=== PATIENT | female | born 1995 | race Caucasian/White ===

== ENCOUNTER 2016-12-23 15:05 | Emergency (ER) | payer OTHER ==
[2016-12-23 15:23] VITALS: BP 108/60
[2016-12-23] MEDS ORDERED: Acetaminop/Codeine 30 MG TAB* 1 TAB (300 MG/30 MG) PO ONE (15:33)
[2016-12-23] MEDS ORDERED: Ofloxacin 0.3% OTIC.SOL* 5 ML BTL LEFT EAR ONE (15:47)
--- NOTE | 2016-12-23 16:09 | UC ---
Ear Complaint HPI - HPI Summary HPI Summary: Patient arrives with mother and c/o of R ear pain since approx 1000 when pt states a bug flew into her R ear. She states using hydrogen peroxide in the ear and got the bug out, ever since then, she has had pain. Also c/o of L ear pain that she has had for the past 2 days. She notes to recurrent ear infections, but denies ear infections as a child. She is otherwise healthy. Denies sore throat, nasal congestion, cough, SOB, difficulty hearing or head congestion. - History of Current Complaint Chief Complaint: UCEar Stated Complaint: EAR COMPLAINT Time Seen by Provider: 12/23/16 15:09 Hx Obtained From: Patient Hx Last Menstrual Period: 12/09/16 ?: No Severity Initially: Moderate Severity Currently: Moderate Pain Intensity: 5 Pain Scale Used: 0-10 Numeric Alleviating Factors: OTC Meds Associated Signs/Symptoms: Positive: Trauma to Ear - Allergies/Home Medications Allergies/Adverse Reactions: Allergies Allergy/AdvReac Type Severity Reaction Status Date / Time Penicillins Allergy Intermediate Rash Verified 12/23/16 15:22 Adhesive Tape Allergy Mild Rash Verified 12/23/16 15:22 Latex Allergy Itching Verified 12/23/16 15:22 PMH/Surg Hx/FS Hx/Imm Hx Previously Healthy: Yes Neurological History Of: Reports: Migraine Psychological History Of: Reports: Anxiety, Depression - Surgical History Surgical History: Yes Surgery Procedure, Year, and Place: kidney stone removed - Family History Known Family History: Positive: Unknown - Social History Occupation: Employed Full-time Lives: With Family Alcohol Use: None Substance Use Type: None Smoking Status (MU): Never Smoked Tobacco - Immunization History Most Recent Influenza Vaccination: Current for Season Most Recent Pneumonia Vaccination: never Vaccination Up to Date: Yes Review of Systems Constitutional: Negative Skin: Negative Eyes: Negative ENT: Ear Ache Respiratory: Negative Cardiovascular: Negative Neurovascular: Negative Musculoskeletal: Negative Neurological: Negative Psychological: Negative All Other Systems Reviewed And Are Negative: Yes Physical Exam Triage Information Reviewed: Yes Appearance: Well-Appearing, No Pain Distress, Well-Nourished Vital Signs: Initial Vital Signs Temp 98.5 F 12/23/16 15:17 Pulse 84 12/23/16 15:17 Resp 16 12/23/16 15:17 BP 108/60 12/23/16 15:17 Pulse Ox 100 12/23/16 15:17 Vital Signs Reviewed: Yes Eye Exam: Normal Eyes: Positive: Conjunctiva Clear, Conjunctiva Inflamed ENT Exam: Normal ENT: Positive: Pharynx normal, Nasal drainage, Other: - left TM with red circular ring without puncture of TM - trauma to the area from a bug Dental Exam: Normal Neck exam: Normal Neck: Positive: Supple, Nontender, No Lymphadenopathy Respiratory Exam: Normal Respiratory: Positive: Chest non-tender, Lungs clear Cardiovascular Exam: Normal Cardiovascular: Positive: RRR Psychological Exam: Normal Psychological: Positive: Normal Response To Family Skin Exam: Normal Ear Complaint Course/Dx - Course Course Of Treatment: patient requesting otic drops d/t recurrent ear infections. ofloxacin ordered for right ear. right ear with redness but without signs of infection - looks as if d/t trauma from the bug. the left ear has some buildup inside the ear which reveals a very early possible otitis externa. she agrees with plan and OK for follow up. - Differential Dx/Diagnosis Differential Diagnosis/HQI/PQRI: Barotrauma, Cellulitis, Foreign Body, Perforated TM Provider Diagnoses: otitis externa Discharge - Discharge Plan Condition: Stable Disposition: HOME Prescriptions: Ofloxacin 0.3% OTIC.LASHON* [Floxin 0.3% OTIC.LASHON*] 5 drop .SEE ORDER DAILY #1 btl Patient Education Materials: Otitis Media (ED) Referrals: MAURI Enrique [Primary Care Provider] - Additional Instructions: FOLLOW UP WITH PCP. IF SYMPTOMS PERSIST, COME BACK TO OR GO TO THE ED. TYLENOL 650 THREE TIMES DAILY FOR EAR PAIN. OFLOXACIN 5 DROPS ANTIBIOTIC DAILY FOR 7 DAYS.
[2016-12-23] MEDS ORDERED: Ofloxacin 0.3% OTIC.SOL* 5 ML BTL LEFT EAR SCH (21:00)
== END 2016-12-23 16:05 | disposition home or self-care (01) ==
LOC: UCCORT 15:05
DX: H60.90 Unspecified otitis externa, unspecified ear (principal); G43.909 Migraine, unspecified, not intractable, without status migrainosus; Z87.442 Personal history of urinary calculi; F41.8 Other specified anxiety disorders; Z88.0 Allergy status to penicillin
CPT/HCPCS: 99212; A9270-GY; G0463

== ENCOUNTER 2018-03-09 21:16 | Emergency (ER) | payer MEDICAID, OTHER ==
--- NOTE | 2018-03-09 21:24 | UC ---
Throat Pain/Nasal Shiva HPI - HPI Summary HPI Summary: 22 yo female presents with multiple complaints: 1) B/l earache and pressure for the last 2-3 weeks. 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 Admits that she has been a bit stressed at work. She is ambulating unassisted without a limp or significant pain. Has not taken anything OTC for her symptoms. Denies fever, chills, SOB, chest pain, abdominal pain, n/v/d/c, or dysuria. - History of Current Complaint Stated Complaint: bilateral leg,throat,ear complaints Time Seen by Provider: 03/09/18 21:24 Hx Obtained From: Patient Hx Last Menstrual Period: 12/09/16 Onset/Duration: Gradual Onset Severity: Moderate Pain Intensity: 8 Pain Scale Used: 0-10 Numeric - Allergies/Home Medications Allergies/Adverse Reactions: Allergies Allergy/AdvReac Type Severity Reaction Status Date / Time Adhesive Tape Allergy Mild Rash Verified 07/07/17 15:06 Latex, Natural Rubber Allergy Itching Verified 03/09/18 21:23 Penicillins Allergy Rash Verified 03/09/18 21:23 PMH/Surg Hx/FS Hx/Imm Hx Psychological History: Anxiety, Depression - Surgical History Surgical History: Yes Surgery Procedure, Year, and Place: kidney stone removed - Family History Known Family History: Positive: Unknown - Social History Occupation: Student Lives: With Family Alcohol Use: None Substance Use Type: None Smoking Status (MU): Never Smoked Tobacco - Immunization History Most Recent Influenza Vaccination: Current for Season Most Recent Pneumonia Vaccination: never Vaccination Up to Date: Yes Review of Systems Constitutional: Negative Skin: Negative Eyes: Negative ENT: Sore Throat, Ear Ache Respiratory: Cough Cardiovascular: Negative Gastrointestinal: Negative Genitourinary: Negative Neurovascular: Negative Musculoskeletal: Other: - b/l anterior thigh pain Neurological: Negative Psychological: Negative All Other Systems Reviewed And Are Negative: Yes Physical Exam - Summary Physical Exam Summary: GENERAL: NAD. WDWN. No pain distress. SKIN: No rashes, sores, lesions, or open wounds. HEENT: Head: AT/NC Eyes: Conjunctiva clear without inflammation or discharge. Ears: Hearing grossly normal. TMs intact, no bulging, erythema, or edema. Nose: Nasal mucosa pink and moist. NTTP maxillary and frontal sinus. Throat: Posterior oropharynx mild erythema and 2+ tonsillar enlargement. No exudates. Uvula midline. No hoarse voice or muffled voice. NECK: Supple. Nontender. No lymphadenopathy. CHEST: CTAB. No r/r/w. No accessory muscle use. Breathing comfortably and in no distress. CV: RRR. Without m/r/g. Pulses intact. Brisk cap refill. MSK: B/L LEs: FROM. Strength 5/5 and symmetric. TTP over quads and pain with flexion when providing resistance. NEURO: Alert. CN II-XII grossly intact. PSYCH: Age appropriate behavior. Triage Information Reviewed: Yes Vital Signs: Vital Signs: Temp Pulse Resp BP Pulse Ox 98.5 F 86 15 117/71 100 03/09/18 21:22 03/09/18 21:22 03/09/18 21:22 03/09/18 21:22 03/09/18 21:22 Throat Pain/Nasal Course/Dx - Course Course Of Treatment: Suspect pharyngitis. Rx for zpak. Advised to RICE and take ibuprofen for her leg pain as I suspect this is from overuse or muscle strain. - Differential Dx/Diagnosis Provider Diagnoses: Pharyngitis. B/L Quad strain Discharge - Sign-Out/Discharge Documenting (check all that apply): Discharge/Admit/Transfer - Discharge Plan Condition: Stable Disposition: HOME Prescriptions: Azithromycin TAB* [Zithromax TAB (Z-SHAHBAZ) 250 mg #6 tabs] 2 tab PO .TODAY, THEN 1 DAILY #1 shahbaz Patient Education Materials: Pharyngitis (ED) Forms: *Work Release Referrals: MAURI Enrique [Primary Care Provider] - Additional Instructions: If you develop a fever, shortness of breath, chest pain, new or worsening symptoms - please call your PCP or go to the ED. Your blood pressure was high at todays visit. Please see your primary provider within 4 weeks for recheck and re-evaluation. - Billing Disposition and Condition Condition: STABLE Disposition: Home
[2018-03-09 21:28] VITALS: BP 117/71
[2018-03-09] MEDS ORDERED: Azithromycin TAB* 250 MG PO ONE (21:33)
== END 2018-03-09 21:44 | disposition home or self-care (01) ==
LOC: UCCORT 21:16
DX: J02.9 Acute pharyngitis, unspecified (principal); S76.112A Strain of left quadriceps muscle, fascia and tendon, initial encounter; S76.111A Strain of right quadriceps muscle, fascia and tendon, initial encounter; X50.0XXA Overexertion from strenuous movement or load, initial encounter; Y93.F9 Activity, other caregiving; Y92.9 Unspecified place or not applicable; Y99.0 Civilian activity done for income or pay; Z88.0 Allergy status to penicillin
CPT/HCPCS: 99212; A9270-GY; G0463

== ENCOUNTER 2018-03-13 12:31 | Emergency (ER) | payer OTHER ==
--- NOTE | 2018-03-13 13:24 | UC ---
Eye Complaint HPI - HPI Summary HPI Summary: Left ear decreased hearing and "clear" discharge, "dark green" nasal congestion , sore throat, painful swallowing, and "dark green" productive cough for five day. Seen here 03/09/18 with pharyngitis and bilateral quad strain, and given a Z -Chandana and work release. When asked, patient stated symptoms are worsening. Decreased appetite, nausea with three episodes of vomiting (last "right before I came here"; able to tolerate fluids), diarrhea "pretty much all day", myalgias , chills, sweats, and tired for two days. Elevated temperature (101) today. [ End ] - History of Current Complaint Chief Complaint: UCGeneralIllness Stated Complaint: BILATERAL EAR CONGESTION VOMITING DIARRHEA Time Seen by Provider: 03/13/18 13:12 Hx Obtained From: Patient Hx Last Menstrual Period: "I just started the Depo, so I'm bleeding constantly. " Onset/Duration: Gradual Onset, Lasting Days, Still Present Timing: Constant Severity Initially: Moderate Severity Currently: Moderate Pain Intensity: 8 Pain Scale Used: 0-10 Numeric - Allergies/Home Medications Allergies/Adverse Reactions: Allergies Allergy/AdvReac Type Severity Reaction Status Date / Time Adhesive Tape Allergy Mild Rash Verified 03/13/18 12:51 Latex, Natural Rubber Allergy Itching Verified 03/13/18 12:51 Penicillins Allergy Rash Verified 03/13/18 12:51 Home Medications: Home Medications Ibuprofen TAB* [Advil TAB*] 400 mg PO Q6H PRN 03/13/18 [History Confirmed ] medroxyPROGESTERone ACETATE* [DEPO-Provera*] 150 mg IM SEE INSTRUCTIONS [History Confirmed 03/13/18] PMH/Surg Hx/FS Hx/Imm Hx - Additional Past Medical History Additional PMH: FIBROMYALGIA GI/ History: Gastroesophageal Reflux, Kidney Stones Neurological History: Migraine Psychological History: Depression - Surgical History Surgical History: Yes Surgery Procedure, Year, and Place: kidney stone removed - Family History Known Family History: Positive: Unknown - Social History Alcohol Use: Rare Substance Use Type: None Smoking Status (MU): Never Smoked Tobacco - Immunization History Most Recent Influenza Vaccination: Current for Season Most Recent Pneumonia Vaccination: never Vaccination Up to Date: Yes Review of Systems Constitutional: Fever, Fatigue ENT: Sore Throat, Ear Ache, Nasal Discharge Respiratory: Shortness Of Breath, Cough Cardiovascular: Negative Gastrointestinal: Abdominal Pain, Vomiting, Diarrhea, Nausea Genitourinary: Negative Musculoskeletal: Myalgia Neurological: Headache All Other Systems Reviewed And Are Negative: Yes Physical Exam Triage Information Reviewed: Yes Appearance: No Pain Distress, Well-Nourished, Ill-Appearing - MILD Vital Signs: Initial Vital Signs Temp 99 F 03/13/18 12:44 Pulse 108 03/13/18 12:44 Resp 16 03/13/18 12:44 BP 110/58 03/13/18 12:44 Pulse Ox 100 03/13/18 12:44 Vital Signs Reviewed: Yes Eyes: Positive: Conjunctiva Clear ENT: Positive: Hearing grossly normal, Pharynx normal, Other - RIGHT TM NORMAL. LEFT TM MILDLY ERYTHEMATOUS Neck: Positive: Supple, Nontender, No Lymphadenopathy Respiratory Exam: Normal Cardiovascular Exam: Normal Abdomen Description: Positive: Soft, CVA Tenderness (R) - EQUIVOCAL, CVA Tenderness (L) - EQUIVOCAL, Other: - TTP RLQ. NO RIGIDITY OR REBOUND. POSITIVE PSOAS AND OBTURATOR. PAIN WITH LIGHT PERCUSSION. Negative: Distended, Guarding Bowel Sounds: Positive: Present Musculoskeletal: Positive: No Edema Neurological: Positive: Alert Psychological: Positive: Age Appropriate Behavior Skin: Negative: rashes Discharge - Discharge Plan Referrals: Delia Piedra MD [Primary Care Provider] -
--- NOTE | 2018-03-13 13:46 | UC ---
General HPI - HPI Summary HPI Summary: PRESENTS WITH OVER A WEEK OF ILLNESS. WAS SEEN 4 DAYS AGO AND DIAGNOSED WITH PHARYNGITIS TREATED WITH A Z-SHAHBAZ. PATIENT STATES SHE IS NOT BETTER AND HAS PERSISTENT PRODUCTIVE COUGH AND NASAL CONGESTION, SORE THROAT, PAIN WITH SWALLOWING. SHE IS REPORTING LOW-GRADE FEVERS OF ABOUT 101 MOST RECENTLY TODAY. 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 STATES BOTH HER EARS HURT WITH MUTED HEARING FROM THE LEFT EAR. REPORTS SOME CLEAR DRAINAGE FROM THE EAR. OVER THE PAST FEW DAYS SHE HAS DEVELOPED NAUSEA, VOMITING AND MULTIPLE EPISODES OF DIARRHEA. SHE HAS MYALGIAS, CHILLS, SWEATS AND FATIGUE. APPETITE IS DOWN. - History of Current Complaint Chief Complaint: UCGeneralIllness Stated Complaint: BILATERAL EAR CONGESTION VOMITING DIARRHEA Time Seen by Provider: 03/13/18 13:12 Hx Obtained From: Patient Hx Last Menstrual Period: "I just started the Depo, so I'm bleeding constantly. " Onset/Duration: Gradual Onset, Lasting Days Timing: Constant Onset Severity: Moderate Current Severity: Moderate Pain Intensity: 8 Associated Signs & Symptoms: Positive: Back Pain, Cough, Diarrhea, Fever, Headache, Nausea, SOB, Vomiting - Allergy/Home Medications Allergies/Adverse Reactions: Allergies Allergy/AdvReac Type Severity Reaction Status Date / Time Adhesive Tape Allergy Mild Rash Verified 03/13/18 14:00 Latex, Natural Rubber Allergy Itching Verified 03/13/18 14:00 MS Penicillins [Penicillins] Allergy Rash Verified 03/13/18 14:00 Penicillins Allergy Rash Verified 03/13/18 14:00 Home Medications: Home Medications Ibuprofen TAB* [Advil TAB*] 400 mg PO Q6H PRN 03/13/18 [History Confirmed ] medroxyPROGESTERone ACETATE* [DEPO-Provera*] 150 mg IM SEE INSTRUCTIONS [History Confirmed 03/13/18] PMH/Surg Hx/FS Hx/Imm Hx - Additional Past Medical History Additional PMH: FIBROMYALGIA GI/ History: Gastroesophageal Reflux, Kidney Stones Neurological History: Migraine Psychological History: Depression - Surgical History Surgical History: Yes Surgery Procedure, Year, and Place: kidney stone removed - Family History Known Family History: Positive: Unknown - Social History Alcohol Use: Rare Substance Use Type: None Smoking Status (MU): Never Smoked Tobacco - Immunization History Most Recent Influenza Vaccination: Current for Season Most Recent Pneumonia Vaccination: never Vaccination Up to Date: Yes Review of Systems Constitutional: Fever, Fatigue ENT: Sore Throat, Ear Ache, Nasal Discharge Respiratory: Shortness Of Breath, Cough Cardiovascular: Negative Gastrointestinal: Abdominal Pain, Vomiting, Diarrhea, Nausea Genitourinary: Negative Musculoskeletal: Myalgia Neurological: Headache All Other Systems Reviewed And Are Negative: Yes Physical Exam Triage Information Reviewed: Yes Appearance: No Pain Distress, Well-Nourished, Ill-Appearing - MILD Vital Signs: Initial Vital Signs Temp 99 F 03/13/18 12:44 Pulse 108 03/13/18 12:44 Resp 16 03/13/18 12:44 BP 110/58 03/13/18 12:44 Pulse Ox 100 03/13/18 12:44 Eyes: Positive: Conjunctiva Clear ENT: Positive: Hearing grossly normal, Pharynx normal, Other - RIGHT TM NORMAL. LEFT TM MILDLY ERYTHEMATOUS. Negative: Tonsillar swelling, Tonsillar exudate Neck: Positive: Supple, Nontender, No Lymphadenopathy Respiratory Exam: Normal Cardiovascular Exam: Normal Abdomen Description: Positive: Soft, CVA Tenderness (R) - EQUIVOCAL, CVA Tenderness (L) - EQUIVOCAL, Other: - TTP RLQ. NO REBOUND OR RIGIDITY. POS PSOAS AND OBTURATOR. TENDER WITH LIGHT PERCUSSION. Negative: Distended, Guarding Bowel Sounds: Positive: Present Musculoskeletal: Positive: No Edema Neurological: Positive: Alert Psychological: Positive: Age Appropriate Behavior Skin: Negative: rashes Diagnostics - Laboratory Diagnostic Studies Completed/Ordered: URINE DIP SP. GR. 1.015, TR PROTEIN, TR KETONES, 2+ BLOOD, 2+ LEUKS, 1+ BILI - Radiology CT ABD/PELVIS W/O CONTRAST Xray Interpretation: Positive (See Comments) - 1. Negative for obstructive uropathy. 2. Nonobstructing 0.5 cm stone inferior pole calyx LEFT kidney. 3. Normal appendix documented. 4. Partially decompressed IVC suggesting lower volume state. Radiology Interpretation Completed By: Radiologist Course/Dx - Course Course Of Treatment: PT WITH POSITIVE URINE DIP, KIDNEY STONE ON CT AND REPORTED LOW GRADE FEVER AT HOME WITH N/V/D. CONCERN FOR EARLY PYELO. ADVISED TRANSFER TO ED. PT DECLINES. WOULD LIKE TO TRY OUTPT TREATMENT. CBC AND CMP DRAWN. URINE STRAINER DISPENSED. LOW THRESHOLD FOR GOING TO THE ED IF SX DO NOT IMPROVE OVER THE NEXT COUPLE OF DAYS. NORMAL APPENDIX ON CT. SLIGHT REDNESS TO LEFT TM ON PHYSICAL EXAM. COMPLETED AZITH TODAY FOR URI SX AND EAR PAIN. LIKELY RESOLVING OTITIS. WILL NOT TREAT THIS SPECIFICALLY TODAY. - Differential Dx - Multi-Symptom Provider Diagnoses: KIDNEY STONE Discharge - Sign-Out/Discharge Documenting (check all that apply): Discharge/Admit/Transfer - Discharge Plan Condition: Stable Disposition: HOME Prescriptions: Acetaminop/Codeine 30 MG TAB* [Tylenol/Codeine 30 MG TAB*] 1 - 2 tab PO Q6H PRN #20 tab MDD 8 PRN Reason: Pain Ciprofloxacin TAB* [Cipro 500 MG TAB*] 500 mg PO BID #20 tab Ondansetron ODT TAB* [Zofran Odt TAB*] 4 mg PO Q8H PRN #12 tab.odt PRN Reason: Nausea/Vomiting Tamsulosin CAP* [Flomax CAP*] 0.4 mg PO DAILY #7 cap Patient Education Materials: Kidney Stones (ED) Forms: *Work Release Referrals: [facility] [Provider Group] - 1 Week Delia Piedra MD [Primary Care Provider] - 1 Week Additional Instructions: UNCLEAR CAUSE OF ALL YOUR SYMPTOMS TODAY. CT SCAN TODAY DOES SHOW A 5 MM NONOBSTRUCTING STONE IN YOUR LEFT KIDNEY. THIS MAY BE CAUSING SOME OF YOUR SYMPTOMS. YOU HAVE BEEN SENT HOME WITH A URINE STRAINER. IF YOU CATCH YOUR STONE, BRING IT TO YOUR UROLOGY FOLLOW-UP APPOINTMENT. TAKE FLOMAX ONCE A DAY TO HELP ENCOURAGE PASSING THE STONE. TYLENOL 3 FOR DISCOMFORT. ZOFRAN FOR NAUSEA. GIVEN YOUR LOW GRADE FEVER, FLANK PAIN AND POSITIVE URINE DIP WILL COVER WITH CIPRO. LOW THRESHOLD FOR GOING TO THE ED IF YOUR SYMPTOMS WORSEN OR DO NOT IMPROVE WITH THIS TREATMENT. BLOOD COUNT AND METABOLIC PANEL CHECKED TODAY. WE WILL CALL YOU WITH ANY ABNORMAL RESULTS. - Billing Disposition and Condition Condition: STABLE Disposition: Home
--- NOTE | 2018-03-13 14:29 | RAD ---
INDICATION: RIGHT side flank pain for 3 days. Nausea and vomiting. Microscopic hematuria. History of urolithiasis. COMPARISON: January 24, 2013 CT TECHNIQUE: Multidetector CT images were obtained from the lung bases to the ischial tuberosities. Evaluation of the viscera is limited without IV contrast. Multiplanar reformation. REPORT: Unremarkable visualized inferior thorax. Post cholecystectomy. Negative for biliary dilatation. Unremarkable liver, pancreas, spleen. Negative for CT abnormality of the upper GI, small bowel, diminutive medially extending appendix, or colon. Negative for ascites, free air, or significant hernias. Normal adrenal glands. 0.5 cm nonobstructing stone lower pole calyx LEFT kidney. Negative for RIGHT nephrolithiasis or bilateral ureteral stones. Negative for hydronephrosis. No conspicuous focal renal lesions or perinephric stranding. Pelvic phleboliths noted. Largely decompressed urinary bladder without gross abnormality. Unremarkable anteverted uterus and adnexal regions. Negative for lymphadenopathy. Partially decompressed IVC suggesting lower volume state. Normal diameter abdominal aorta and iliac arteries. Unchanged finding of small osseous erosions and subchondral sclerosis at the LEFT sacroiliac joint compared with the 2013 exam consistent with sequela of previous sacroiliitis. Negative for suspicious focal osseous lesions. IMPRESSION: #. Negative for obstructive uropathy. #. Nonobstructing 0.5 cm stone inferior pole calyx LEFT kidney. #. Normal appendix documented. #. Partially decompressed IVC suggesting lower volume state.
[2018-03-13 15:25] VITALS: BP 110/70
[2018-03-13 19:18] LABS: ABS Basophils 0 10^3/ul (0-0.2); ABS Eosinophils 0.6 10^3/ul (0-0.6); ABS Lymphocytes 2.2 10^3/ul (1.0-4.8); ABS Monocytes 0.6 10^3/ul (0-0.8); ABS Nucleated RBC 0 10^3/ul; Eosinophil % 7.5 % (0-6); Hematocrit 39 % (35-47); Hemoglobin 12.7 g/dl (12.0-16.0); Lymphocyte % 26.1 % (25-47); Mean Corpuscular HGB Conc 33 g/dl (31-36); Mean Corpuscular Hemoglobin 25 pg (27-31); Mean Corpuscular Volume 76 fL (80-97); Mean Platelet Volume 9.3 um3 (7.4-10.4); Nucleated Red Blood Cells % 0; Platelet Count 256 10^3/ul (150-450); Red Blood Count 5.08 10^6/ul (4.00-5.40); Red Cell Distribution Width 13 % (10.5-15); White Blood Count 8.5 10^3/ul (3.5-10.8)
[2018-03-13 19:29] LABS: EGFR Non-African American 126.2 (>60)
== END 2018-03-13 15:27 | disposition home or self-care (01) ==
LOC: UCCORT 12:31
DX: N20.0 Calculus of kidney (principal); Z88.0 Allergy status to penicillin
CPT/HCPCS: 36415; 74176; 80053; 81003; 85025; 87086; 99212; G0463

== ENCOUNTER 2019-06-02 07:45 | Emergency (ER) | payer OTHER ==
[2019-06-02 08:03] VITALS: BP 115/63
--- NOTE | 2019-06-02 08:34 | ED ---
Throat Pain/Nasal Congestion - HPI Summary HPI Summary: 23 yr old the complaint of sore throat, bilateral ear pain left worse than right , nasal congestion. Onset about 36 hours ago. No fever. No other complaints. Symptoms are moderate. - History of Current Complaint Chief Complaint: UCGeneralIllness Time Seen by Provider: 06/02/19 08:07 - Allergies/Home Medications Allergies/Adverse Reactions: Allergies Allergy/AdvReac Type Severity Reaction Status Date / Time Adhesive Tape Allergy Mild Rash Verified 06/02/19 08:03 Latex, Natural Rubber Allergy Itching Verified 06/02/19 08:03 Penicillins Allergy Rash Verified 06/02/19 08:03 Home Medications: Home Medications Acetaminophen [Tylenol] 2 tab PO ONCE 06/02/19 [History Confirmed 06/02/19] D-Methorphan/PE/Acetaminophen [Daytime Cold-Flu Relief Sftgl] 1 tab PO ONCE [History Confirmed 06/02/19] PMH/Surg Hx/FS Hx/Imm Hx Endocrine/Hematology History: Denies: Hx Anticoagulant Therapy, Hx Diabetes, Hx Thyroid Disease Cardiovascular History: Denies: Hx Congestive Heart Failure, Hx Deep Vein Thrombosis, Hx Hypertension , Hx Myocardial Infarction, Hx Pacemaker/ICD Respiratory History: Denies: Hx Asthma, Hx Chronic Obstructive Pulmonary Disease (COPD), Hx Lung Cancer, Hx Pneumonia, Hx Pulmonary Embolism GI History: Reports: Hx Gastroesophageal Reflux Disease - Since the Pt was 10 to 11 years old. Denies: Hx Gall Bladder Disease, Hx Gastrointestinal Bleed, Hx Ulcer, Hx Urosepsis History: Denies: Hx Kidney Stones, Hx Renal Disease Musculoskeletal History: Reports: Hx Fibromyalgia, Other Musculoskeletal History Neurological History: Reports: Other Neuro Impairments/Disorders - Fibromyalgia Denies: Hx Dementia, Hx Migraine, Hx Seizures, Hx Transient Ischemic Attacks (TIA) Psychiatric History: Reports: Hx Anxiety, Hx Attention Deficit Hyperactivity Disorder, Hx Eating Disorder - pt states "I used to be anorexic", Hx Depression , Hx Community Mental Health Tx - [facility] and saw Jodee Argueta and Jodee Jaramillo at school, Hx Suicide Attempt - 2 years ago by hanging Denies: Hx of Violent Episodes Against Others - Surgical History Surgery Procedure, Year, and Place: cholecystectomy. kidney stone removal Infectious Disease History: No Infectious Disease History: Denies: Traveled Outside the [place] in Last 30 Days - Family History Known Family History: Positive: None, Unknown, Other - no FMH of hearing disorders, Non-Contributory Negative: Cardiac Disease, Hypertension, Diabetes - Social History Occupation: Employed Full-time Alcohol Use: None Substance Use Type: Reports: None Smoking Status (MU): Never Smoked Tobacco Review of Systems Constitutional: Negative Positive: Ear Ache, Nasal Discharge All Other Systems Reviewed And Are Negative: Yes Physical Exam Triage Information Reviewed: Yes Vital Signs On Initial Exam: Initial Vitals Temp Pulse Resp BP Pulse Ox 99.1 F 78 18 115/63 100 06/02/19 07:58 06/02/19 07:58 06/02/19 07:58 06/02/19 07:58 06/02/19 07:58 Vital Signs Reviewed: Yes Appearance: Positive: Well-Appearing, No Pain Distress Skin: Positive: Warm, Skin Color Reflects Adequate Perfusion Head/Face: Positive: Normal Head/Face Inspection Eyes: Positive: EOMI, MARY ENT: Positive: Normal ENT inspection, Pharyngeal erythema, Nasal congestion, TM red - left red with effusion Neck: Positive: Nontender Respiratory/Lung Sounds: Positive: Clear to Auscultation, Breath Sounds Present Cardiovascular: Positive: RRR. Negative: Murmur Abdomen Description: Negative: Distended Musculoskeletal: Positive: Strength/ROM Intact Neurological: Positive: Sensory/Motor Intact, Alert, Oriented to Person Place, Time, CN Intact II-III, Speech Normal Psychiatric: Positive: Normal Diagnostics - Vital Signs Vital Signs Temp Pulse Resp BP Pulse Ox 06/02/19 07:58 99.1 F 78 18 115/63 100 - Laboratory Lab Statement: Any lab studies that have been ordered have been reviewed, and results considered in the medical decision making process. EENT Course/Dx - Course Course Of Treatment: 23 yr old with otitis media left. Rx with zithromax. - Diagnoses Provider Diagnoses: Left otitis media Discharge ED - Sign-Out/Discharge Documenting (check all that apply): Patient Departure All imaging exams completed and their final reports reviewed: No Studies - Discharge Plan Condition: Good Disposition: HOME Prescriptions: Azithromycin TAB* [Zithromax TAB (Z-SHAHBAZ) 250 mg #6 tabs] 2 tab PO .TODAY, THEN 1 DAILY #1 shahbaz Patient Education Materials: Ear Infection (ED) Forms: *Work Release Referrals: Adri Haynes MD [Primary Care Provider] - 2 Days - Billing Disposition and Condition Condition: GOOD Disposition: Home
== END 2019-06-02 08:32 | disposition home or self-care (01) ==
LOC: UCCORT 07:45
DX: H66.92 Otitis media, unspecified, left ear (principal); Z88.0 Allergy status to penicillin
CPT/HCPCS: 99212; G0463

== ENCOUNTER 2019-09-20 10:57 | Emergency (ER) | payer OTHER ==
[2019-09-20 12:48] VITALS: BP 111/90
[2019-09-20] MEDS ORDERED: Ketorolac INJ* 30 MG/ML 1 ML VIAL IM ONE (12:56)
--- NOTE | 2019-09-20 13:04 | UC ---
Back Pain HPI - HPI Summary HPI Summary: 24-year-old female who states that she pulled her lower back when she was getting into the shower today. She states she has chronic back pain and chronic fibromyalgia. All of the symptoms which she told the nurse are chronic symptoms. She denies any saddle anesthesia and no numbness in her extremities. No loss of bowel or bladder control. Patient states she has had more frequency of urination but no burning. - History of Current Complaint Chief Complaint: UCBackPain Stated Complaint: BODY ACHES/BACK PAIN Time Seen by Provider: 09/20/19 12:35 Hx Obtained From: Patient Hx Last Menstrual Period: doesn't get period r/t nexplanon implant ?: No Onset/Duration: Sudden Onset, Lasting Hours Timing: Constant Severity Initially: Moderate Severity Currently: Mild - Although patient has a pain scale of 9 she is moving in the room without difficulty she got up on the exam table without difficulty. Pain Intensity: 9 Character: Dull, Aching Aggravating Factor(s): Movement, Lifting, Bending Alleviating Factor(s): Rest Associated Signs And Symptoms: Negative: Weakness, Numbness, Tingling, Abdominal Pain, Flank Pain, Bladder Incontinence, Bowel Incontinence, Pain with Weight Bearing - Allergies/Home Medications Allergies/Adverse Reactions: Allergies Allergy/AdvReac Type Severity Reaction Status Date / Time Adhesive Tape Allergy Mild Rash Verified 09/20/19 12:40 Latex, Natural Rubber Allergy Itching Verified 09/20/19 12:40 Penicillins Allergy Rash Verified 09/20/19 12:40 PMH/Surg Hx/FS Hx/Imm Hx Previously Healthy: Yes GI/ History: Gastroesophageal Reflux Neurological History: Migraine, Other - Fibromyalgia Other History Of: Negative For: HIV, Hepatitis B, Hepatitis C, Anticoagulant Therapy - Surgical History Surgical History: Yes Surgery Procedure, Year, and Place: cholecystectomy. kidney stone removal - Family History Known Family History: Positive: None, Unknown, Other - no FMH of hearing disorders, Non-Contributory Negative: Cardiac Disease, Hypertension, Diabetes - Social History Alcohol Use: None Substance Use Type: None Smoking Status (MU): Never Smoked Tobacco - Immunization History Most Recent Influenza Vaccination: Current for Season Most Recent Pneumonia Vaccination: never Vaccination Up to Date: Yes Review of Systems All Other Systems Reviewed And Are Negative: Yes Constitutional: Positive: Fatigue - Patient has fibromyalgia so she is chronically fatigued. Musculoskeletal: Positive: Other: - Patient states she has chronic back pain however today when she was getting in the shower she pulled her lower back. Neurological: Negative: Weakness, Paresthesia, Numbness Is Patient Immunocompromised?: No Physical Exam Triage Information Reviewed: Yes Appearance: Well-Appearing, No Pain Distress, Well-Nourished - Somewhat flat affect Vital Signs: Initial Vital Signs Temp 98.1 F 09/20/19 12:41 Pulse 79 09/20/19 12:41 Resp 17 09/20/19 12:41 BP 111/90 09/20/19 12:41 Pulse Ox 100 09/20/19 12:41 Vital Signs Reviewed: Yes Eyes: Positive: Conjunctiva Clear ENT: Positive: Hearing grossly normal, Pharynx normal, TMs normal, Uvula midline Neck: Positive: Supple, Nontender, No Lymphadenopathy Respiratory: Positive: Lungs clear, Normal breath sounds, No respiratory distress, No accessory muscle use Cardiovascular: Positive: RRR, No Murmur, Pulses Normal, Brisk Capillary Refill Abdomen Description: Positive: Nontender, No Organomegaly, Soft. Negative: CVA Tenderness (R), CVA Tenderness (L), Distended, Guarding, Hepatomegaly, Splenomegaly Bowel Sounds: Positive: Present Musculoskeletal: Positive: Strength Intact, ROM Intact, Other: - Good peripheral pulses, neuro sensation and capillary refill, good arm and leg strength against resistance, negative straight leg raise. Neurological: Positive: Alert, Muscle Tone Normal, Other: Back Pain Course/Dx - Course Course Of Treatment: Urinalysis: Urinalysis showed 1+ leukocytes. Urine hCG: Negative At this point time I would prefer for the urine culture to be returned to make sure this is urinary tract infection. I believe this is more chronic back pain. The patient is agreeable to this plan of action. - Differential Dx/Diagnosis Provider Diagnosis: Low back strain Discharge ED - Sign-Out/Discharge Documenting (check all that apply): Patient Departure All imaging exams completed and their final reports reviewed: No Studies - Discharge Plan Condition: Good Disposition: HOME Patient Education Materials: Low Back Strain (ED) Forms: *Work Release Referrals: David Petit MD [Medical Doctor] - Adri Haynes MD [Primary Care Provider] - Additional Instructions: Continue your regular pain medicine. Avoid movements that cause pain. Follow up with Dr. Petit in 4-5 days if no improvement and/or for management of chronic back pain. - Billing Disposition and Condition Condition: GOOD Disposition: Home - Attestation Statements Provider Attestation: This patient was not seen by me. I was available for consult. Chart reviewed. ASA
== END 2019-09-20 13:31 | disposition home or self-care (01) ==
LOC: UCCORT 10:57
DX: S39.012A Strain of muscle, fascia and tendon of lower back, initial encounter (principal); X58.XXXA Exposure to other specified factors, initial encounter; Y93.E1 Activity, personal bathing and showering; Y92.002 Bathroom of unspecified non-institutional (private) residence as the place of occurrence of the external cause; R53.83 Other fatigue; Z32.02 Encounter for pregnancy test, result negative; Z91.040 Latex allergy status; Z88.0 Allergy status to penicillin; Z91.048 Other nonmedicinal substance allergy status
CPT/HCPCS: 81003; 84702; 87086; 96372; 99211; G0463; J1885

== ENCOUNTER 2019-11-26 08:15 | Emergency (ER) | payer OTHER ==
[2019-11-26 08:39] VITALS: BP 145/85
--- NOTE | 2019-11-26 09:17 | UC ---
Nausea/Vomiting/Diarrhea HPI - HPI Summary HPI Summary: WATERY DIARRHEA ALONG WITH 2 EPISODES OF VOMITING THIS MORNING. PATIENT COMPLAINING OF NAUSEA AND ABDOMINAL CRAMPING BUT NO FEVER, BODY ACHES, COUGH OR CONGESTION. - History of Current Complaint Chief Complaint: UCGI Stated Complaint: DIARRHEA VOMITING Time Seen by Provider: 11/26/19 08:56 Hx Obtained From: Patient Hx Last Menstrual Period: doesn't get period r/t nexplanon implant Onset/Duration: Sudden Onset, Lasting Hours, Still Present Severity Initially: Moderate Severity Currently: Moderate Pain Intensity: 5 Pain Scale Used: 0-10 Numeric Character: Cramping Aggravating Factor(s): Nothing Alleviating Factor(s): Nothing Nausea/Vomiting Presence: Nauseated, Vomiting Diarrhea Presence: Yes Diarrhea Characteristics: Watery - Allergies/Home Medications Allergies/Adverse Reactions: Allergies Allergy/AdvReac Type Severity Reaction Status Date / Time Adhesive Tape Allergy Mild Rash Verified 11/26/19 08:29 Latex, Natural Rubber Allergy Itching Verified 11/26/19 08:29 Penicillins Allergy Rash Verified 11/26/19 08:29 Home Medications: Home Medications Venlafaxine EXT RELEASE CAP* [Effexor Xr CAP*] 150 mg PO DAILY 05/16/14 [ History Confirmed 11/26/19] Etonogestrel [Nexplanon] 68 mg IMPLANT ONCE 12/09/18 [History Confirmed 11/26/19 ] Ondansetron ODT TAB* [Zofran Odt TAB*] 4 mg PO Q6H PRN #20 tab.odt 11/26/19 [Rx] PMH/Surg Hx/FS Hx/Imm Hx - Additional Past Medical History Additional PMH: FIBROMYALGIA Neurological History: Migraine Psychological History: Anxiety, Depression Other History Of: Negative For: HIV, Hepatitis B, Hepatitis C, Anticoagulant Therapy - Surgical History Surgical History: Yes Surgery Procedure, Year, and Place: cholecystectomy. kidney stone removal - Family History Known Family History: Positive: None, Other - no FMH of hearing disorders, Non- Contributory Negative: Cardiac Disease, Hypertension, Diabetes - Social History Alcohol Use: None Substance Use Type: None Smoking Status (MU): Never Smoked Tobacco - Immunization History Most Recent Influenza Vaccination: Current for Season Most Recent Pneumonia Vaccination: never Vaccination Up to Date: Yes Review of Systems All Other Systems Reviewed And Are Negative: Yes Constitutional: Positive: Negative ENT: Positive: Negative Respiratory: Positive: Negative Cardiovascular: Positive: Negative Gastrointestinal: Positive: Abdominal Pain, Vomiting, Diarrhea, Nausea Genitourinary: Positive: Negative Physical Exam Triage Information Reviewed: Yes Appearance: Well-Appearing, No Pain Distress, Well-Nourished Vital Signs: Initial Vital Signs Temp 98.1 F 11/26/19 08:29 Pulse 111 11/26/19 08:29 Resp 18 11/26/19 08:29 BP 145/85 11/26/19 08:29 Pulse Ox 99 11/26/19 08:29 Vital Signs Reviewed: Yes Eyes: Positive: Conjunctiva Clear ENT: Positive: Hearing grossly normal Neck: Positive: Supple Respiratory Exam: Normal Cardiovascular Exam: Normal Abdomen Description: Positive: Soft, Other: - MILDLY TENDER DIFFUSELY. NO REBOUND OR RIGIDITY. Negative: Distended, Guarding Bowel Sounds: Positive: Present Musculoskeletal: Positive: No Edema Neurological: Positive: Alert Psychological: Positive: Age Appropriate Behavior Skin: Negative: Rashes Naus/Vom/Diarrhea Course/Dx - Course Course Of Treatment: PATIENT PRESENTATION CONSISTENT WITH A VIRAL GASTROENTERITIS. SYMPTOMS SHOULD RESOLVE ON THEIR OWN OVER THE NEXT FEW DAYS. ZOFRAN FOR NAUSEA. FOLLOW-UP IF NEEDED. - Differential Dx/Diagnosis Provider Diagnosis: Acute gastroenteritis Condition At Discharge: Stable Discharge ED - Sign-Out/Discharge Documenting (check all that apply): Patient Departure All imaging exams completed and their final reports reviewed: No Studies - Discharge Plan Condition: Stable Disposition: HOME Prescriptions: Ondansetron ODT TAB* [Zofran Odt TAB*] 4 mg PO Q6H PRN #20 tab.odt PRN Reason: Nausea/Vomiting Patient Education Materials: Gastroenteritis (ED) Forms: *Work Release Referrals: Adri Haynes MD [Primary Care Provider] - If Needed Additional Instructions: GASTROENTERITIS: You have gastroenteritis ("intestinal flu"). This disease is usually caused by a virus. There is no specific treatment. The disease will end by itself. For now, the main danger is dehydration. Give clear liquids. Examples include Pedialyte, Gatorade, clear broth, juices, flat sodas, and jello water. Medications may be prescribed by the physician for special cases. Once tolerated, the clear liquid diet may be supplemented with rice, cereal, toast, applesauce, or bananas. GO TO THE [facility] WITHOUT FAIL if vomiting increases or blood appears in the bowel movement or vomitus; if you fail to improve, or if signs of dehydration occur (tongue and mouth become dry, lethargy). ENSURE ADEQUATE HYDRATION. CLEAR LIQUIDS, BLAND DIET. AVOID CAFFEINE, DAIRY, GREASY, SPICY FOODS. ONCE YOU ARE TOLERATING CLEAR LIQUIDS YOU CAN ADVANCE TO SIMPLE, BLAND FOODS. - Billing Disposition and Condition Condition: STABLE Disposition: Home
== END 2019-11-26 09:29 | disposition home or self-care (01) ==
LOC: UCCORT 08:15
DX: K52.9 Noninfective gastroenteritis and colitis, unspecified (principal); F41.9 Anxiety disorder, unspecified; F32.9 Major depressive disorder, single episode, unspecified; Z79.899 Other long term (current) drug therapy; Z91.040 Latex allergy status; Z88.0 Allergy status to penicillin; Z91.048 Other nonmedicinal substance allergy status
CPT/HCPCS: 99212; G0463